=== PATIENT | female | born 1995 | race Caucasian/White ===

== ENCOUNTER 2022-06-06 18:55 | Emergency (ER) | payer OTHER, MEDICAID, SELFPAY ==
--- NOTE | ~2022-06-06 | CT_ITS ---
EXAMINATION: CT ABDOMEN AND PELVIS WITH CONTRAST CLINICAL INFORMATION: Rectal pain. Rule out abscess COMPARISON: None TECHNIQUE: Multidetector volumetric images were obtained from the superior aspect of the liver through the pubic symphysis following administration 85 mL of Omnipaque 350 intravenous contrast. Sagittal and coronal reformatted images were obtained on the technologist's workstation. Oral contrast: No This CT examination was performed using dose optimization techniques as appropriate, variously including the following: *Automated exposure control *Adjustment of mA and/or kV according to patient size (this includes techniques or standardized protocols for targeted exams where dose is matched to indication/reason for exam; i.e. extremities or head) *Use of iterative reconstruction technique DLP: 478 mGy-cm FINDINGS: LUNG BASES: Minimal left basilar atelectasis. The lung bases are otherwise clear. The visualized cardiac structures are unremarkable LIVER, GALLBLADDER, AND BILIARY TREE: The liver is normal in size, shape, and attenuation. No focal hepatic lesion or biliary ductal dilatation is present. The gallbladder is unremarkable with no evidence of radiopaque gallstones, gallbladder wall thickening, or obvious pericholecystic inflammatory changes. PANCREAS: Unremarkable. SPLEEN: Unremarkable. ADRENAL GLANDS: Unremarkable. KIDNEYS AND URETERS: The kidneys are normal in size, shape, and attenuation. No hydronephrosis, hydroureter, or calculi seen. No perinephric stranding. BLADDER: Unremarkable. GASTROINTESTINAL TRACT: The stomach is unremarkable. Normal caliber small bowel. No obstruction. Normal appendix. No colonic wall thickening or inflammatory change. No perirectal fluid collection. No free air or free fluid. ABDOMINAL WALL: No significant hernia is appreciated. LYMPH NODES: Normal. VASCULAR: Unremarkable. PELVIC VISCERA: Anteverted uterus. IUD in place. No adnexal mass. OSSEOUS STRUCTURES: No acute or suspicious osseous abnormality. CT/CT abdomen pelvis w IV con IMPRESSION: No acute findings in the abdomen or pelvis. No inflammatory changes. No perirectal fluid collection. Fleischner guidelines were followed.
--- NOTE | 2022-06-06 19:01 | ED_ITS ---
HPI - Abdominal Pain General Chief Complaint: Abdominal Pain <Anika Rocha NP - Last Filed: 06/06/22 19:06> Stated Complaint: rectal pain and bloody discharge <Anika Rocha NP - Last Filed: 06/06/22 19:06> Time Seen by Provider: 06/06/22 20:08 <Anika Rocha NP - Last Filed: 06/06/22 19:06> Source: patient <Kavon Yung MD - Last Filed: 06/07/22 00:41> Mode of arrival: ambulatory <Kavon Yung MD - Last Filed: 06/07/22 00:41> Limitations: no limitations <Kavon Yung MD - Last Filed: 06/07/22 00:41> History of Present Illness HPI narrative: 27-year-old female came in for evaluation of rectal pain. Rectal pain started 3 days ago with maturation, pain is constant feels severe when she is having bowel movement in between feels mild, patient also noted black stool 2 days ago which is normal today. No nausea, no vomiting no upper abdominal pain until she had abdominal exam patient felt right lower quadrant abdominal tenderness, no fever, no chills. Patient declined chance of feeling , no vaginal bleeding or discharge. No dysuria, no frequency urination, no hematuria. <Kavon Yung MD - Last Filed : 06/07/22 00:41> Related Data Home Medications: Previous Rx's Medication Instructions Recorded fluoxetine 20 mg capsule 20 mg PO DAILY #90 caps 06/04/22 nitrofurantoin 100 mg PO BID #14 caps 06/07/22 monohydrate/macrocrystals 100 mg capsule (Macrobid) <Anika Rocha NP - Last Filed: 06/06/22 19:06> Allergies/Adverse Reactions: Allergies Allergy/AdvReac Type Severity Reaction Status Date / Time Latex Allergy Unknown rash Uncoded 09/14/19 00:00 <Anika Rocha NP - Last Filed: 06/06/22 19:06> Review of Systems Review of Systems All other systems are reviewed and are negative Constitutional: Reports as per HPI and Reports no additional constitutional comp laints Eyes: Reports as per HPI and Reports no additional eye complaints Reports system reviewed and no additional complaints, except as documented Cardiovascular: Reports as per HPI and Reports no additional cardiovascular complaints Respiratory: Reports as per HPI and Reports no additional respiratory complaints Gastrointestinal: Reports as per HPI and Reports no additional gastrointestinal complaints Genitourinary: Reports no additional female genitourinary complaints Musculoskeletal: Reports no additional musculoskeletal complaints Skin/Breast: Reports system reviewed and no additional complaints, except as docu Psychiatric: Reports no additional psychiatric complaints Endocrine: Reports no additional endocrine complaints Hematologic/Lymphatic: Reports no additional hematologic/lymphatic complaints Allergic/Immunologic: Reports no additional allergic/immunologic complaints Reports system reviewed and no additional complaints, except as documented and Reports Abnormal speech present <Kavon Yung MD - Last Filed: 06/07/22 00:41> [facility] Social History Social History: Social History Housing: House Patient Tobacco Use Status: Current everyday Tobacco user Tobacco use type: Cigarette Cigarettes Per Day: 6 e-Cigarette/Vaping Use: Never Used Second Hand Smoke Exposure: No Advance Directives: No Advance Directives Information Provided: No service: No Current occupational status: employed Cognitive needs: No Hearing needs: No Vision needs: No <Anika Rocha NP - Last Filed: 06/06/22 19:06> Physical Exam ED Vital Signs: Vital Signs - 24 hr 06/06/22 19:02 06/06/22 21:40 06/07/22 00:00 Temperature 98.0 F 98.2 F 98.4 F Pulse Rate 118 H 79 86 Respiratory Rate 16 18 16 Blood Pressure 136/84 107/56 L 100/51 L Pulse Oximetry 97 98 98 Oxygen Delivery Method Room Air Room Air Room Air BMI result Body Mass Index 25.7 <Anika Rocha NP - Last Filed: 06/06/22 19:06> Vital Signs - 24 hr 06/06/22 19:02 06/06/22 21:40 06/07/22 00:00 Temperature 98.0 F 98.2 F 98.4 F Pulse Rate 118 H 79 86 Respiratory Rate 16 18 16 Blood Pressure 136/84 107/56 L 100/51 L Pulse Oximetry 97 98 98 Oxygen Delivery Method Room Air Room Air Room Air BMI result Body Mass Index 25.7 Vital signs have been reviewed as appeared to be correct. Blood pressure normal. Heart rate elevated. Respiration rate normal. Temperature normal. Oxygen saturation normal. <Kavon Yung MD - Last Filed: 06/07/22 00:41> Appearance: Alert. Oriented X3. No acute distress. Head: Normal external exam. Normocephalic. Atraumatic. No Rolle signs noted. No raccoon eyes noted Eyes: PERRLA. EOMI. Conjunctiva and sclera normal. Eyelids normal. ENT: TM's Normal. Pharynx normal. Uvula midline. Moist mucous membranes. No trismus noted. No drooling noted. No muffled voice noted. Neck: Normal inspection. Neck supple. FROM. No adenopathy. Thyroid Normal. No meningeal signs. No neck mass noted. CVS: Normal heart rate and rhythm. Heart sound normal. No murmurs noted. Pulses normal throughout. Respiratory: No respiratory distress. Painless inspiration. Breath sounds rober l. No wheezes/rales/rhonchi noted. Chest nontender. No accessory muscle usage noted or decreased air movement noted. Abdomen: Soft and nontender. Bowel sounds normal in all 4 quadrants. No distention noted. No organomegaly noted. No visible injury noted. Rectal exam: No external hemorrhoids, no internal hemorrhoid, no internal fluctuation or mass. Back: No CVA tenderness. Full range of motion noted. Skin: Skin warm and dry. Normal skin color. Normal skin turgor. No rashes/lesions/lacerations noted. Extremities: No lower extremity edema. Extremities exhibit normal range of motion. Extremities nontender. Neuro: Oriented X 3. Cranial nerve exam: II-XII are grossly intact No motor deficit. No sensory deficit. Reflexes normal. <Kavon Yung MD - Last Filed: 06/07/22 00:41> Course Course Course Narrative: This is a rapid medical exam. Deferred additional HPI, ROS, PE to primary provider. 27 yo female with history of anxiety/depression here with complaints of rectal pain/pressure since Wednesday. Went to [place] but was not seen due to long wait. Went to today and had rectal exam which patient states they felt a painful bump inside my rectum . Sent in here for further evaluation. Will obtain labs, UA, ur preg. VSS <Anika Rocha NP - Last Filed: 06/06/22 19:06> Reevaluation(s) Reevaluation #1: Rectal pain and black stool, patient has unremarkable rectal exam with no hemorrhoids or abscess is appreciated, normal wbc's with slight left shift, CT of the abdomen pelvis shows no suspicion for rectal abscess or proctitis . Patient now feels better will reassure and discharge. <Kavon Yung MD - Last Filed: 06/07/22 00:41> Time: 00:35 <Kavon Yung MD - Last Filed: 06/07/22 00:41> Medical Decision Making Differential Diagnosis Differential Diagnoses: The differential diagnosis associated with the presentation includes (Abdominal pain, constipation, proctitis, rectal abscess, complicated hemorrhoid.) <Kavon Yung MD - Last Filed: 06/07/22 00:41> Lab Data MDM Lab Attestation statement: I reviewed the patient's lab results. <Kavon Yung MD - Last Filed: 06/07/22 00:41> Result Diagrams: 06/06/22 20:46 06/06/22 20:46 <Anika Rocha NP - Last Filed: 06/06/22 19:06> Labs: Lab Results 06/06/22 06/06/22 06/06/22 Range/Units 20:46 20:46 20:51 WBC 10.8 (4.8-10.8) X10*3/uL RBC 3.87 L (4.20-5.50) X10*6/uL Hgb 11.5 L (12.0-16.0) g/dl Hct 35.6 L (37.0-47.0) % MCV 92.0 (80.0-98.0) fL MCH 29.7 (27.0-33.0) pg MCHC 32.3 (31.0-35.0) g/dl RDW 13.1 (11.0-16.0) % Plt Count 333 (160-400) X10*3/uL MPV 10.0 (9.4-12.3) fL Immature Gran % (Auto) 0.5 H (0.0-0.4) % Neut % (Auto) 59.0 (45-73) % Lymph % (Auto) 33.9 (20-40) % Sebastian % (Auto) 5.0 (2-11) % Eos % (Auto) 1.3 (0-4) % Baso % (Auto) 0.3 (0-2) % Lymph # (Auto) 3.7 (1.2-4.9) X10*3/uL Sebastian # (Auto) 0.5 (0.1-1.2) X10*3/uL Eos # (Auto) 0.1 (0.0-0.4) X10*3/uL Baso # (Auto) 0.0 (0.0-0.2) X10*3/uL Abs Immat Gran (auto) 0.05 H (0.00-0.03) X10*3/uL Absolute Neuts (auto) 6.4 (2.0-8.3) x10*3/uL Absolute Nucleated RBC 0.000 (0.0-0.012) X10*3/uL Nucleated RBC % (auto) 0.0 (0.0-0.2) /100WBC Sodium 140 (135-145) mmol/L Potassium 4.1 (3.3-5.1) mmol/L Chloride 106 (96-108) mmol/L Carbon Dioxide 26 (22-29) mmol/L Anion Gap 12 (12-20) BUN 15 (9-16) mg/dL Creatinine 0.63 (0.5-1.4) mg/dL Estim Creat Clear Calc 134.3 Estimated GFR > 60 Random Glucose 86 (60-115) mg/dL Calcium 9.3 (8.4-10.2) mg/dL Urine Color Yellow Urine Appearance Cloudy Urine pH 5.5 (5.0-9.0) Ur Specific [place] 1.025 (1.005-1.025) Urine Protein Negative (Neg-Trace) mg/dL Urine Glucose (UA) Negative (Negative) mg/dL Urine Ketones Negative (Negative) mg/dL Urine Blood Negative (Negative) Urine Nitrite Negative (Negative) Ur Leukocyte Esterase Moderate (2+) H (Negative) Urine RBC 6-10 H (0-2) /HPF Urine WBC 21-50 H (0-5) /HPF Ur Squamous Epith Cells 11-20 (0-2) /HPF Urine Bacteria 2+ (None Seen) Hyaline Casts 0-2 (0-2) /LPF Urine Test (NEGATIVE) Stool Occult Blood (NEGATIVE) 06/06/22 06/06/22 Range/Units 20:51 20:58 WBC (4.8-10.8) X10*3/uL RBC (4.20-5.50) X10*6/uL Hgb (12.0-16.0) g/dl Hct (37.0-47.0) % MCV (80.0-98.0) fL MCH (27.0-33.0) pg MCHC (31.0-35.0) g/dl RDW (11.0-16.0) % Plt Count (160-400) X10*3/uL MPV (9.4-12.3) fL Immature Gran % (Auto) (0.0-0.4) % Neut % (Auto) (45-73) % Lymph % (Auto) (20-40) % Sebastian % (Auto) (2-11) % Eos % (Auto) (0-4) % Baso % (Auto) (0-2) % Lymph # (Auto) (1.2-4.9) X10*3/uL Sebastian # (Auto) (0.1-1.2) X10*3/uL Eos # (Auto) (0.0-0.4) X10*3/uL Baso # (Auto) (0.0-0.2) X10*3/uL Abs Immat Gran (auto) (0.00-0.03) X10*3/uL Absolute Neuts (auto) (2.0-8.3) x10*3/uL Absolute Nucleated RBC (0.0-0.012) X10*3/uL Nucleated RBC % (auto) (0.0-0.2) /100WBC Sodium (135-145) mmol/L Potassium (3.3-5.1) mmol/L Chloride (96-108) mmol/L Carbon Dioxide (22-29) mmol/L Anion Gap (12-20) BUN (9-16) mg/dL Creatinine (0.5-1.4) mg/dL Estim Creat Clear Calc Estimated GFR Random Glucose (60-115) mg/dL Calcium (8.4-10.2) mg/dL Urine Color Urine Appearance Urine pH (5.0-9.0) Ur Specific [place] (1.005-1.025) Urine Protein (Neg-Trace) mg/dL Urine Glucose (UA) (Negative) mg/dL Urine Ketones (Negative) mg/dL Urine Blood (Negative) Urine Nitrite (Negative) Ur Leukocyte Esterase (Negative) Urine RBC (0-2) /HPF Urine WBC (0-5) /HPF Ur Squamous Epith Cells (0-2) /HPF Urine Bacteria (None Seen) Hyaline Casts (0-2) /LPF Urine Test NEGATIVE (NEGATIVE) Stool Occult Blood NEGATIVE (NEGATIVE) <Anika Rocha, [employer]IST - Last Filed: 06/06/22 19:06> Lab Results 06/06/22 06/06/22 06/06/22 Range/Units 20:46 20:46 20:51 WBC 10.8 (4.8-10.8) X10*3/uL RBC 3.87 L (4.20-5.50) X10*6/uL Hgb 11.5 L (12.0-16.0) g/dl Hct 35.6 L (37.0-47.0) % MCV 92.0 (80.0-98.0) fL MCH 29.7 (27.0-33.0) pg MCHC 32.3 (31.0-35.0) g/dl RDW 13.1 (11.0-16.0) % Plt Count 333 (160-400) X10*3/uL MPV 10.0 (9.4-12.3) fL Immature Gran % (Auto) 0.5 H (0.0-0.4) % Neut % (Auto) 59.0 (45-73) % Lymph % (Auto) 33.9 (20-40) % Sebastian % (Auto) 5.0 (2-11) % Eos % (Auto) 1.3 (0-4) % Baso % (Auto) 0.3 (0-2) % Lymph # (Auto) 3.7 (1.2-4.9) X10*3/uL Sebastian # (Auto) 0.5 (0.1-1.2) X10*3/uL Eos # (Auto) 0.1 (0.0-0.4) X10*3/uL Baso # (Auto) 0.0 (0.0-0.2) X10*3/uL Abs Immat Gran (auto) 0.05 H (0.00-0.03) X10*3/uL Absolute Neuts (auto) 6.4 (2.0-8.3) x10*3/uL Absolute Nucleated RBC 0.000 (0.0-0.012) X10*3/uL Nucleated RBC % (auto) 0.0 (0.0-0.2) /100WBC Sodium 140 (135-145) mmol/L Potassium 4.1 (3.3-5.1) mmol/L Chloride 106 (96-108) mmol/L Carbon Dioxide 26 (22-29) mmol/L Anion Gap 12 (12-20) BUN 15 (9-16) mg/dL Creatinine 0.63 (0.5-1.4) mg/dL Estim Creat Clear Calc 134.3 Estimated GFR > 60 Random Glucose 86 (60-115) mg/dL Calcium 9.3 (8.4-10.2) mg/dL Urine Color Yellow Urine Appearance Cloudy Urine pH 5.5 (5.0-9.0) Ur Specific [place] 1.025 (1.005-1.025) Urine Protein Negative (Neg-Trace) mg/dL Urine Glucose (UA) Negative (Negative) mg/dL Urine Ketones Negative (Negative) mg/dL Urine Blood Negative (Negative) Urine Nitrite Negative (Negative) Ur Leukocyte Esterase Moderate (2+) H (Negative) Urine RBC 6-10 H (0-2) /HPF Urine WBC 21-50 H (0-5) /HPF Ur Squamous Epith Cells 11-20 (0-2) /HPF Urine Bacteria 2+ (None Seen) Hyaline Casts 0-2 (0-2) /LPF Urine Test (NEGATIVE) Stool Occult Blood (NEGATIVE) 06/06/22 06/06/22 Range/Units 20:51 20:58 WBC (4.8-10.8) X10*3/uL RBC (4.20-5.50) X10*6/uL Hgb (12.0-16.0) g/dl Hct (37.0-47.0) % MCV (80.0-98.0) fL MCH (27.0-33.0) pg MCHC (31.0-35.0) g/dl RDW (11.0-16.0) % Plt Count (160-400) X10*3/uL MPV (9.4-12.3) fL Immature Gran % (Auto) (0.0-0.4) % Neut % (Auto) (45-73) % Lymph % (Auto) (20-40) % Sebastian % (Auto) (2-11) % Eos % (Auto) (0-4) % Baso % (Auto) (0-2) % Lymph # (Auto) (1.2-4.9) X10*3/uL Sebastian # (Auto) (0.1-1.2) X10*3/uL Eos # (Auto) (0.0-0.4) X10*3/uL Baso # (Auto) (0.0-0.2) X10*3/uL Abs Immat Gran (auto) (0.00-0.03) X10*3/uL Absolute Neuts (auto) (2.0-8.3) x10*3/uL Absolute Nucleated RBC (0.0-0.012) X10*3/uL Nucleated RBC % (auto) (0.0-0.2) /100WBC Sodium (135-145) mmol/L Potassium (3.3-5.1) mmol/L Chloride (96-108) mmol/L Carbon Dioxide (22-29) mmol/L Anion Gap (12-20) BUN (9-16) mg/dL Creatinine (0.5-1.4) mg/dL Estim Creat Clear Calc Estimated GFR Random Glucose (60-115) mg/dL Calcium (8.4-10.2) mg/dL Urine Color Urine Appearance Urine pH (5.0-9.0) Ur Specific [place] (1.005-1.025) Urine Protein (Neg-Trace) mg/dL Urine Glucose (UA) (Negative) mg/dL Urine Ketones (Negative) mg/dL Urine Blood (Negative) Urine Nitrite (Negative) Ur Leukocyte Esterase (Negative) Urine RBC (0-2) /HPF Urine WBC (0-5) /HPF Ur Squamous Epith Cells (0-2) /HPF Urine Bacteria (None Seen) Hyaline Casts (0-2) /LPF Urine Test NEGATIVE (NEGATIVE) Stool Occult Blood NEGATIVE (NEGATIVE) <Kavon Yung MD - Last Filed: 06/07/22 00:41> Independent Interpretation I performed an independent interpretation of an: CT Scan (abd and plevis: No acute findings in the abdomen or pelvis. No inflammatory changes. No perirectal fluid collection.) <Kavon Yung MD - Last Filed: 06/07/22 00:41> Medications Administered Discontinued Medications Generic Name Dose Route Start Last Admin Trade Name Freq PRN Reason Stop Dose Admin Sodium Chloride 1,000 mls @ 999 mls/hr 06/06/22 21:07 06/06/22 23:14 Ns IV 06/06/22 22:07 Infused .Q1H1M ONE Infusion Iohexol 100 ml 06/06/22 22:44 06/06/22 22:45 Iohexol 350 Mg/Ml 100 Ml Infus..Btl IV 06/06/22 22:45 85 ml ONCE ONE Administration <Anika Rocha NP - Last Filed: 06/06/22 19:06> Medications Administered Discontinued Medications Generic Name Dose Route Start Last Admin Trade Name Freq PRN Reason Stop Dose Admin Sodium Chloride 1,000 mls @ 999 mls/hr 06/06/22 21:07 06/06/22 23:14 Ns IV 06/06/22 22:07 Infused .Q1H1M ONE Infusion Iohexol 100 ml 06/06/22 22:44 06/06/22 22:45 Iohexol 350 Mg/Ml 100 Ml Infus..Btl IV 06/06/22 22:45 85 ml ONCE ONE Administration <Kavon Yung MD - Last Filed: 06/07/22 00:41> Discharge Plan Discharge Clinical Impression: Pain, rectal <Anika Rocha NP - Last Filed: 06/06/22 19:06> Patient Disposition: Home, Self-Care <Anika Rocha NP - Last Filed: 06/06/22 19:06> Instructions: Sitz Bath (DC), Rectal Pain (ED) <Anika Rocha NP - Last Filed: 06/06/22 19:06> Prescriptions: New nitrofurantoin monohyd/m-cryst [Macrobid] 100 mg capsule 100 mg PO BID Qty: 14 0RF Rx Instructions: must administer with a meal/food No Action fluoxetine 20 mg capsule 20 mg PO DAILY Qty: 90 8RF <Anika Rocha NP - Last Filed: 06/06/22 19:06> Referrals: Lauryn Middleton),MD Jonathon [Primary Care Provider] - <Anika Rocha NP - Last Filed: 06/06/22 19:06>
[2022-06-06 19:02] VITALS: BP 136/84; PULSE 118; RESP 16; TEMP 36.7; O2SAT 97; BMI 25.7
--- NOTE | 2022-06-06 20:57 | PC.NURSE ---
pt c/o rectal pain, no apparent distress watching tv while resting quietly present when Dr Yung performed rectal exam and collected stool sample for OB card sample
[2022-06-06 20:58] LABS: MANUAL DIFF FLAG NO
[2022-06-06 20:59] LABS: Appearance Urine Cloudy; Color Urine Yellow; Glucose Urine UA Negative (Negative); Leukocyte Esterase Urine Moderate (2+) (Negative); Nitrite Urine Negative (Negative); PH 5.5 (5.0-9.0); Specific Gravity - Urine 1.025 (1.005-1.025); UMIC TRIGGER UACC YES; Urine Blood Negative (Negative); Urine Ketones Negative (Negative); Urine Protein Negative (Neg-Trace)
[2022-06-06 20:59] LABS: Basophils Percent Auto 0.3 % (0-2); Eosinophils Absolute Auto 0.1 X10*3/uL (0.0-0.4); Eosinophils Percent Auto 1.3 % (0-4); Hematocrit 35.6 % (37.0-47.0); Hemoglobin 11.5 g/dl (12.0-16.0); Imm Gran Abs Auto 0.05 X10*3/uL (0.00-0.03); Imm Gran Pct Auto 0.5 % (0.0-0.4); Lymphocytes Absolute Auto 3.7 X10*3/uL (1.2-4.9); Lymphocytes Percent Auto 33.9 % (20-40); Mean Corpuscular HGB Conc 32.3 g/dl (31.0-35.0); Mean Corpuscular Hemoglobin 29.7 pg (27.0-33.0); Monocytes Absolute Auto 0.5 X10*3/uL (0.1-1.2); Neutrophils Absolute Auto 6.4 x10*3/uL (2.0-8.3); Platelet Count 333 X10*3/uL (160-400); Red Blood Count 3.87 X10*6/uL (4.20-5.50); Red Cell Distribution Width 13.1 % (11.0-16.0); White Blood Count 10.8 X10*3/uL (4.8-10.8)
[2022-06-06 21:01] LABS: UPreg QC Valid YES; Urine Pregnancy NEGATIVE (NEGATIVE)
[2022-06-06 21:04] LABS: OBS Int Ctl Valid YES; OBS1 NEGATIVE (NEGATIVE)
[2022-06-06 21:15] LABS: Bacteria Urine 2+ (None Seen); Hyaline Casts Urine 0-2 /LPF (0-2); UACC Culture Trigger YES; WBC Urine 21-50 /HPF (0-5)
[2022-06-06 21:34] LABS: Anion Gap 12 (12-20); Blood Urea Nitrogen 15 mg/dL (9-16); Calcium 9.3 mg/dL (8.4-10.2); Carbon Dioxide 26 mmol/L (22-29); Chloride 106 mmol/L (96-108); Creatinine Clr Calc Pharmacy 134.3; Estimated Glomerular Filt Rate > 60; Glucose Random 86 mg/dL (60-115); Potassium 4.1 mmol/L (3.3-5.1); Sodium 140 mmol/L (135-145)
[2022-06-06 21:40] VITALS: BP 107/56; PULSE 79; RESP 18; TEMP 36.8; O2SAT 98
[2022-06-06] MEDS: 0.9 % Sodium Chloride 1,000 ML 999 ML IV (21:59)
[2022-06-06] MEDS: iohexoL 350 MG/ML 100 ML INFUS..BTL IV (22:45)
[2022-06-07] VITALS: BP 100/51; PULSE 86; RESP 16; TEMP 36.9; O2SAT 98
--- NOTE | 2022-06-07 | MHC.EDTECH ---
this pct assumed care of pt [id number] ,vitals sign taken pt waiting for discharge paper work .
== END 2022-06-07 00:33 | disposition home or self-care (01) ==
PROVIDERS: Nurse Practitioner Family; Emergency Provider Emergency Medicine; PCP Internal Medicine
DX: K62.89 Other specified diseases of anus and rectum (principal); F17.210 Nicotine dependence, cigarettes, uncomplicated; Z79.899 Other long term (current) drug therapy
CPT/HCPCS: 36415; 74177; 80048; 81001; 81003; 81025; 82272; 85025; 87086; 96360; 99284; Q9967

== ENCOUNTER → 2022-06-10 11:01 | Outpatient (BNVA) | payer OTHER, MEDICAID, SELFPAY | PROVIDERS: PCP Internal Medicine; Referring Provider Internal Medicine; Visit Provider Physician Assistant | DX: Z13.89 Encounter for screening for other disorder (principal) ==

== ENCOUNTER 2025-01-17 13:25 | Outpatient (AMB) | payer MEDICAID, SELFPAY ==
[2025-01-17 13:27] VITALS: BP 94/52; PULSE 86; RESP 18; TEMP 36.3; O2SAT 97; BMI 22.9
--- NOTE | 2025-01-17 13:27 | A.OFFPC_ITS ---
Vital Signs 01/17/25 13:27 Height 5 ft 5 in Weight 137 lb 8 oz BMI 22.9 BP 94/52 L Blood Pressure Location Lt brachial Position Sitting Respiration 18 Pulse 86 Pulse Source Pulse Oximeter Temp 97.3 F Temp Source Temporal Artery Scan Pulse Oximetry (%) 97 Oxygen Delivery Method Room Air Intake Visit Reasons: follow up Surgeon/President Required: No Accompanied by: Self / Same As Patient Allergies No Known Allergies Allergy (Verified 01/17/25 13:28) Tobacco use date assessed: 01/17/25 Dental Screening Dental Screen Date: 01/17/25 Did you have a dental visit in the last 12 months?: Yes Did you have a dental problem in the last 6 months where you did not have access to dental care?: No Was dental information given to patient?: Patient has dentist HPI HPI Comments History of Present Illness Details The patient is a 29-year-old female presenting for physical exam. She also reports dizziness and lightheadedness. She reports experiencing these symptoms when standing up from a sitting position, which have been ongoing since the of her last child. Her blood pressure readings have been consistently low, with a recent measurement of 94/52 mmHg. The patient also presents with a flaky skin lesion on her nose, which she has had since November. The lesion is not a pimple, but it is flaky and sometimes cracks open, releasing a clear liquid. She has attempted to treat it with Aquaphor and a prescribed betamethasone cream, which temporarily alleviates the symptoms. The patient has a history of low iron levels and reports non-solid bowel movements for years. She also smokes and uses marijuana, and is currently taking Prozac. Additionally, she has symptoms suggestive of sleep apnea, as reported by her partner. - Pap smear is due - Discussed flu vaccination, patient dec lined - Advised to check tetanus vaccination s tatus [facility] Family History Paternal Grandmother Cancer Social History (Updated 01/17/25 @ 14:05 by Bianka Keenan MD) Housing: House Patient Tobacco Use Status: Current everyday Tobacco user Tobacco use type: Cigarette Cigarettes Per Day: 6 e-Cigarette/Vaping Use: Currently Using Second Hand Smoke Exposure: No service: No Current occupational status: employed Cognitive needs: No Hearing needs: No Vision needs: No Questionnaire PHQ-9 Over the last 2 weeks, how often have you been bothered by any of the following problems? 1. Little interest or pleasure in doing things: not at all 2. Feeling down, depressed, or hopeless: not at all 3. Trouble falling or staying asleep, or sleeping too much: not at all 4. Feeling tired or having little energy: several days 5. Poor appetite or overeating: several days 6. Feeling bad about yourself - or that you are a failure or have let yourself or your family down: several days 7. Trouble concentrating on things, such as reading the newspaper or watching television: not at all 8. Moving or speaking so slowly that other people could have noticed. Or the opposite - being so fidgety or restless that you have been moving around a lot more than usual: not at all 9. Thoughts that you would be better off or of hurting yourself in some way: not at all Total score: 3 Depression Screening Interpretation: Negative Depression Screening Done: Yes Source: Developed by Drs. Fabiano Evans, Paige Bernal, Avtar Read and colleagues, with an educational girish from [employer]. Thrive Questionnaire Date Thrive assessed: 01/17/25 I am a: Patient What is your living situation today?: I have a steady place to live Within the past 12 months, did the food you bought not last and you didn't have the money to get more?: Sometimes True Within the past 12 months, did you worry whether your food would run out before you got money to buy more?: Sometimes True Do you have trouble paying for medicines?: No Do you have trouble getting transportation to medical appointments?: No Do you have trouble paying your heating and electricity bill?: No Do you have trouble taking care of your child, family member or friend?: No Do you have trouble with day-to-day activities such as bathing, preparing meals, shopping, managing finances, etc.?: No Are you currently unemployed and looking for a job?: Yes Are you interested in more education?: Yes Please select the resources that you would like help with: None Currently or been in a relationship where the following occur: No concerns reported THRIVE Score: 2 AUDIT C Alcohol Use Questionnaire (AUDIT-C) 1. How often do you have a drink containing alcohol?: Never 2. How many drinks containing alcohol do you have on a typical day when you are drinking?: 1 or 2 3. How often do you have six or more drinks on one occasion?: Never Total Score: 0 MARU-7 AMB Questionnaire MARU-7 Date MARU - 7 assessed: 06/04/22 Feeling nervous, anxious, or on edge: 1 = Several days Not being able to stop or control worryin = Several days Worrying too much about different things: 1 = Several days Trouble relaxin = Several days Being so restless that it is hard to sit still: 3 = Nearly every day Becoming easily annoyed or irritable: 1 = Several days Feeling afraid as if something awful might happen: 1 = Several days Total MARU-7 score (0-4 normal; 5-9 mild; 10-14 moderate; 15-21 severe): 9 Source: Developed by Drs. Fabiano Evans, Paige Bernal, Avtar Read and colleagues, with an educational girish from [employer]. Review of Systems Const Details: Positives besides what was mentioned in HPI are in BOLD Constitutional: No Weight Change, No Fever, No Chills, No Night Sweats, No Fatigue, No Malaise ENT/Mouth: No Hearing Changes, No Ear Pain, No Nasal Congestion, No Sinus Pain, No Hoarseness, No sore throat, No Rhinorrhea, No Swallowing Difficulty Eyes: No Eye Pain, No Swelling, No Redness, No Foreign Body, No Discharge, No Vision Changes Cardiovascular: No Chest Pain, No SOB, No PND, No Dyspnea on Exertion, No Orthopnea, No Claudication, No Edema, No Palpitations Respiratory: No Cough, No Sputum, No Wheezing, No Smoke Exposure, No Dyspnea Gastrointestinal: No Nausea, No Vomiting, No Diarrhea, No Constipation, No Pain, No Heartburn, No Anorexia, No Dysphagia, No Hematochezia, No Melena, No Flatulence, No Jaundice Genitourinary: No Dysmenorrhea, No DUB, No Dyspareunia, No Dysuria, No Urinary Frequency, No Hematuria, No Urinary Incontinence, No Urgency, No Flank Pain, No Urinary Flow Changes, No Hesitancy Musculoskeletal: No Arthralgias, No Myalgias, No Joint Swelling, No Joint Stiffness, No Back Pain, No Neck Pain, No Injury History Skin: No Skin Lesions, No Pruritis, No Hair Changes, No Breast/Skin Changes, No Nipple Discharge Neuro: No Weakness, No Numbness, No Paresthesias, No Loss of Consciousness, No Syncope, No Dizziness, No Headache, No Coordination Changes, No Recent Falls Psych: No Anxiety/Panic, No Depression, No Insomnia, No Personality Changes, No Delusions, No Rumination, No SI/HI/AH/VH, No Social Issues, No Memory Changes, No Violence/Abuse Hx., No Eating Concerns Heme/Lymph: No Bruising, No Bleeding, No Transfusions History, No Ly mphadenopathy Endocrine: No Polyuria, No Polydipsia, No Temperature Intolerance Physical exam (Primary Care) Vital Signs: Last Vital Signs Temp 97.3 F 01/17/25 13:27 Pulse 86 01/17/25 13:27 Resp 18 01/17/25 13:27 BP 94/52 L 01/17/25 13:27 Pulse Ox 97 01/17/25 13:27 Oxygen Delivery Method Room Air 01/17/25 13:27 BMI result Body Mass Index 22.9 Tobacco/Smoking Status: Tobacco use Status Tobacco use date assessed 01/17/25 01/17/25 13:34 Patient Tobacco Use Status Current everyday Tobacco 01/17/25 13:34 Tobacco use type Cigarette 01/17/25 13:34 e-Cigarette/Vaping Use Never Used 01/17/25 13:34 PHQ-9: PHQ-9 Score PHQ-9: Total score 3 01/17/25 13:34 Depression Screening Interpretation: Negative Thrive Assessment: Date of Thrive Assessment Date Thrive assessed 01/17/25 01/17/25 13:34 Currently or been in a relationship where the following occur: No concerns reported Const Other: Pertinent findings are in BOLD GENERAL APPEARANCE NAD, activity normal for age, well developed/ well nourished, no cyanosis, pallor, or diaphoresis. EYES lids/conjunctiva normal. EARS/NOSE/THROAT Mucous membranes moist, nares normal, lips/teeth normal uvula midline without oral pharyngeal erythema, exudate or swelling TMs normal bilaterally. No lymphangitis/lymphedema. HEAD/NECK normocephalic atraumatic, no facial trauma, neck is supple. RESPIRATORY respiratory effort normal, speaks in full sentences, no tripod position, no accessory muscle use. Lungs clear to auscultation without rhonchi, wheezes, rales CARDIAC Regular rate and rhythm, no edema. ABDOMINAL Soft, ND/NT. No evidence of fluid wave. No pulsatile masses on exam, rebound tenderness, Valladares sign or pain over Mcburney's point. MUSCLES/EXTREMITIES No abnormal range of motion, no swelling. SKIN Warm, pink and dry. No rashes, dermatoses, petechiae or lesions. NEUROLOGICAL Speech is clear and appropriate. Normal level of consciousness. Gait and coordination are normal. 5/5 strength in all extremities. PSYCH Normal mood and affect. Judgement/competence is appropriate Coding Level of Care Code Est Pt Level 4 (18988) Est Pt Prev Care 18-39y(44516) Diagnoses Face lesion L98.9 Health maintenance examination Z00.00 Orthostatic hypotension I95.1 Snoring R06.83 Assessment & Plan Assessment & Plan (1) Face lesion: Code(s): L98.9 - Disorder of the skin and subcutaneous tissue, unspecified Category: Medical Plan: - Referred to dermatology for further evaluation. - Advised to discontinue steroid creams and continue using Aquaphor. (2) Health maintenance examination: Code(s): Z00.00 - Encounter for general adult medical examination without abnormal findings Category: Medical Plan: Dexa. Due at 67. CBC, CMP, Lipid panel, A1C, TSH w T4. Ordered today. Advised on getting Shingles vaccine. Not due. Patient reports completing COVID vaccine in the past. She will get the flu vaccine from retail pharmacy. Colonoscopy: 45-75. Due at 45. AAA: Due at 65. Ct lung: Due at 50. Mammogram: Due at 40. HPV: Due now. Patient will get it from [facility]. HIV: Next visit. HBV: Next visit. HCV: Next visit. (3) Orthostatic hypotension: Code(s): I95.1 - Orthostatic hypotension Category: Medical Plan: BP in clinic is low. Patient reports good oral hydration. Drinks 2-3 L per day. Trial of meclizine. If symptoms persist we can try Midodrine. (4) Snoring: Code(s): R06.83 - Snoring Category: Medical Plan: With episodes of chocking at night. Sleep medicine referral. Plan I discussed with the patient the management of her dizziness and lightheadedness, including the prescription of meclizine to be taken as needed. We also talked about the importance of maintaining hydration and the possibility of needing medication if her blood pressure remains low. Regarding the skin lesion, I advised discontinuing steroid creams and continuing with Aquaphor, and referred her to dermatology for further evaluation. Preventative care measures were discussed, including the need for a Pap smear, flu vaccination, and checking her tetanus vaccination status. Orders: Orders TSH reflex Free T4 Today Z00.00 - Encounter for general adult medical examination without abnormal findings Vitamin D 1,25 dihydroxy Today Z00.00 - Encounter for general adult medical examination without abnormal findings Complete Blood Count Auto Diff Today Z00.00 - Encounter for general adult medical examination without abnormal findings Comprehensive Met. Panel Today Z00.00 - Encounter for general adult medical ex amination without abnormal findings Hemoglobin A1c Today Z00.00 - Encounter for general adult medical examination without abnormal findings Lipid Panel Today Z00.00 - Encounter for general adult medical examination without abnormal findings DICK Reflex Titer and Pattern Today Z00.00 - Encounter for general adult medical examination without abnormal findings Referrals Sleep Medicine Referral Z00.00 - Encounter for general adult medical examination without abnormal findings Medications: New meclizine 12.5 mg PO TID PRN 90 tabs 1RF dizziness
--- OUTSIDE RECORDS SUMMARY | 2025-01-17 14:39 | XMS_ITS | Encounter Summary ---
Author Organization [facility] Address [address] [place] [id number] Phone Care Team Providers Care Tester [employer] Name Role Phone Baljit Thornton MD Primary Care Provider [phone] Encounter Details Date Type Department Care Team (Late st Contact Info) Description 05/08/2009 Documentation [facility] Family Medicine [address] [place] [address] Family Medicine, Physician [address], [place] [address] Social History Tobacco Use Types Packs/Day Years Used Date Smoking Tobacco: Never Assessed Comments Unknown Sex and Gender Information Value Date Recorded Sex Assigned at Not on file Legal Sex Female 6:11 PM EDT Gender Identity Not on file Sexual Orientation Not on file documented as of this encounter Plan of Treatment Not on file documented as of this encounter Visit Diagnoses Not on filedocumented in this encounter Care Teams Tester [employer] Relationship Specialty Start Date End Date Baljit Thornton MD [address] [place] [address] PCP - General 08/25/17 04/02/24 documented as of this encounter
--- OUTSIDE RECORDS SUMMARY | 2025-01-17 14:39 | XMS_ITS | Clinical Summary ---
Author Organization [facility] Address [address] [place] [address] Phone Care Team Providers Care Hang Gliding Instructor Name Role Phone Unavailable Primary Care Provider Unavailabl e Immunizations Immunization Administration Dates Next Due DTaP 02/01/2002, 9,1997, 998,1997 HPV, Quadrivalent 10/02/2008,05/30/2008,03/26/20 08 Hep B, ped/adol 1997,1997,1997 Hib (PRP-T) 05/10/1998, 8,1997, 997 IPV 02/01/2002, 8,1997, 997 Influenza, injectable, quadrivalent 01/14/2016,0 01/08/2015 MMR 02/02/2001,02/01/1998 Meningococcal Conj (Menactra) MCV4P 08/31/2013,1 05/27/2007 Tdap 03/26/2008 Varicella 03/03/2007,02/01/1998 Family History Relation Name Status Comments Child Alive Father Alive Healthy age: 49 Maternal Grandfather Alive ? adhd, Alzheimer diagnosed with HEART DISEASE NOS Maternal Grandmother CHF jennifer gnosed with HEART DISEASE NOS Mother Alive Healthy age: 49 Other Alive Siblings: Healt hy 2 brothers Paternal Grandfather Alive diagnos ed with HEART DISEASE NOS Paternal Grandmother Alive diagnos ed with MALIGNANT NEOPLASM NOS Social History Tobacco Use Types Packs/Day Years Used Date Smoking Tobacco: Never Assessed Comments Unknown Sex and Gender Information Value Date Recorded Sex Assigned at Not on file Legal Sex Female 6:11 PM EDT Gender Identity Not on file Sexual Orientation Not on file Last Filed Vital Signs Vital Sign Reading Time Taken Comments Blood Pressure 108/60 01/14/2016 12:00 AM EDT Pulse - - Temperature 37 C (98.6 F) 06/26/2015 12:00 AM EST Respiratory Rate - - Oxygen Saturation - - Inhaled Oxygen Concentration - - Weight 52.2 kg (115 lb) 01/14/2016 12:00 AM EDT Height 164.5 cm (5' 4.75 ) 01/14/2016 12:00 AM E DT Body Mass Index 19.29 01/14/2016 12:00 AM EDT Plan of Treatment Health Maintenance Due Date Last Done Comments DTaP,Tdap,and Td Vaccines (7 - Td or Tdap) 03/26/2018 03/26/2008, 02/01/2002, 05/10/1998, Additional history exists Influenza Vaccines (#1) 2024 01/14/2016, 01/08 COVID-19 Vaccine ( season) 2024 Hepatitis B Vaccines Completed 1997, 1997, 1997 HIB Vaccines Completed 05/10/1998, 07/18, 1997, Additional history exists MMR Vaccines Completed 02/02/2001, 02/01/1998 IPV Vaccines Completed 02/01/2002, 01/17, 1997, Additional history exists Varicella Vaccines Completed 03/03/2007, 02/01/1998 HPV Vaccines Completed 10/02/2008, 05/20, 03/26/2008 Meningococcal Vaccine Completed 08/31/2013, 008 Hepatitis A Vaccines Aged Out No long er eligible based on patient's age to complete this topic Men B Vaccine Aged Out No longer elig ible based on patient's age to complete this topic Pneumococcal Vaccine Aged Out No long er eligible based on patient's age to complete this topic Procedures * Due to [place] state law, this organization might not be sharing sensitive test results. Procedure Name Priority Date/Time Associated Diagnosis Comments CHLAMYDIA AND GONORRHEA, AMPLIFIED Routine 01/15/2016 12:00 AM EDT from Last 3 Months or Most Recently Relevant to Health Maintenance Results * Due to [place] state law, this organization might not be sharing sensitive test results. * Chlamydia and Gonorrhoea, Amplified (01/15/2016 12:00 AM EDT) URINE GC AMP PROBE NEGATIVE C ONVERTED LABS Comment: No Neisseria Gonorrhoeae RNA detected in this patient's sample (REFERENCE RANGE/NORMAL VALUE: NOT DETECTED) NOTE: This test uses emery grinder-mediated amplification method to detect rRNA from C.Trachomatis and N.Gonorrhoeae. A negative result does not preclude infection. In the case of a negative urine result, testing of an endocervical(female) or urethral(male) specimen is recommended if there is high clinical suspicion of infection. The performance characteristics of this test have not been evaluated in children. The Aptima Combo2 assay is not intended for the evaluation of suspected sexual abuse or for other medico-legal indications. The ordering provider should assess if the patient had consensual sex without risk of sexual abuse. Consult the [facility] if needed. Contact phone number . Therapeutic failure or success cannot be determined with the Aptima Combo2 assay since nucleic acid may persist following appropriate antimicrobial therapy. The Centers for Disease Control and Prevention (CDC) recommends confirmatory retesting using culture or a different nucleic acid amplification test when positive results occur, if indicated. URINE CHLAMYDIA AMP PROBE NEGATIVE CONVERTED LABS Comment: No Chlamydia Trachomatis RNA detected in this patient's sample (REFERENCE RANGE/NORMAL VALUE: NOT DETECTED) 01/15/2016 Narrative CONVERTED LABS - 01/15/2016 12:00 AM EDT Screening Negative Kirsten Zaragoza 01/14/2016 10:28:50 AM > Baljit Thornton 01/15/2016 04:19:42 PM > us Baljit Thornton MD LAB MICROBIOLOGY - GENERAL O RDERABLES Final Result CONVERTED LABS from Last 3 Months or Most Recently Relevant to Health Maintenance
--- OUTSIDE RECORDS SUMMARY | 2025-01-17 14:39 | XMS_ITS | Encounter Summary ---
Author Organization [facility] Address [address] [place] [address] Phone Care Team Providers Care Field Map Technician Name Role Phone Baljit Thornton MD Primary Care Provider [phone] Encounter Details Date Type Department Care Team (Late st Contact Info) Description 09/05/2017 Conversion Encounter [facility] [address] [place] [address] Baljit Thornton MD [address] [place] [phone] Social History Tobacco Use Types Packs/Day Years [...] on filedocumented in this encounter Care Teams Field Map Technician Relationship Specialty Start Date End Date Baljit Thornton MD [address] [place] [id number] PCP - General 08/25/17 04/02/24 documented as of this encounter
--- OUTSIDE RECORDS SUMMARY | 2025-01-17 14:39 | XMS_ITS | Encounter Summary ---
Author Organization [facility] Address [address] [place] [address] Phone Care Team Providers Care Superintendent [employer] Name Role Phone Baljit Thornton MD Primary Care Provider [phone] Encounter Details Date Type Department Care Team (Late st Contact Info) Description 06/13/[address] [facility] Family Medicine [address] [place] [address] Family Medicine, Physician [address], [place] [id number] Social History Tobacco Use Types Packs/Day Years [...] on filedocumented in this encounter Care Teams Superintendent [employer] Relationship Specialty Start Date End Date Baljit Thornton MD [address] [place] [address] PCP - General 08/25/17 04/02/24 documented as of this encounter
== END 2025-01-17 14:01 | disposition home or self-care (01) ==
LOC: HO.HMCH 13:25
PROVIDERS: PCP Internal Medicine; Visit Provider Internal Medicine
DX: Z00.00 Encounter for general adult medical examination without abnormal findings (principal); R06.83 Snoring; L98.9 Disorder of the skin and subcutaneous tissue, unspecified; I95.1 Orthostatic hypotension

== ENCOUNTER 2025-01-17 13:25 | Outpatient (REF) | payer OTHER, SELFPAY ==
[2025-01-17 15:13] LABS: MANUAL DIFF FLAG NO
[2025-01-17 15:32] LABS: Hematocrit 35.6 % (37.0-47.0); Hemoglobin 12.0 g/dl (12.0-16.0); Imm Gran Abs Auto 0.02 X10*3/uL (0.00-0.03); Imm Gran Pct Auto 0.3 % (0.0-0.4); Lymphocytes Absolute Auto 2.5 X10*3/uL (1.2-4.9); Mean Corpuscular HGB Conc 33.7 g/dl (31.0-35.0); Mean Corpuscular Hemoglobin 29.9 pg (27.0-33.0); Mean Corpuscular Volume 88.6 fL (80.0-98.0); NRBC Abs Auto 0.000 X10*3/uL (0.0-0.012); NRBC Pct Auto 0.0 /100WBC (0.0-0.2); Platelet Count 299 X10*3/uL (160-400); Red Blood Count 4.02 X10*6/uL (4.20-5.50); White Blood Count 8.0 X10*3/uL (4.8-10.8)
[2025-01-17 15:40] LABS: Total Hemoglobin (HGBA1C) 3122.0758 umol/L
[2025-01-17 15:56] LABS: Alanine Aminotransferase 22 U/L (0-31); Albumin Level 4.7 g/dL (3.5-5.0); Alkaline Phosphatase 39 U/L (39-117); Anion Gap 9 (12-20); Aspartate Amino Transferase 31 U/L (5-31); Blood Urea Nitrogen 11 mg/dL (9-16); Calcium 9.6 mg/dL (8.4-10.2); Carbon Dioxide 27 mmol/L (22-29); Chloride 109 mmol/L (96-108); Cholesterol 137 mg/dL (<200); Estimated Glomerular Filt Rate > 60; HDL Cholesterol 60 mg/dL (>40); Potassium 3.8 mmol/L (3.3-5.1); Sodium 141 mmol/L (135-145); Total Protein 7.3 g/dL (6.5-8.0); Triglycerides 96 mg/dL (<150)
[2025-01-22 05:09] LABS: VITAMIN D (1,25 OH) D3 107 pg/mL; Vit D (1,25-Dihydroxy) Total 107 pg/mL (18-72); Vitamin D (1,25 OH) D2 <8 pg/mL
[2025-01-23 12:13] LABS: Anti Nuclear Antibody Screen POSITIVE (NEGATIVE)
[2025-01-23 12:18] LABS: Anti Nuclear Antibody Pattern Nuclear, Speckled; Anti Nuclear Antibody Titer 1:40 titer
== END 2025-01-17 13:26 | disposition home or self-care (01) ==
LOC: HO.LAB 13:25
PROVIDERS: PCP Internal Medicine; Visit Provider Internal Medicine
DX: Z00.00 Encounter for general adult medical examination without abnormal findings (principal); R42 Dizziness and giddiness; L98.9 Disorder of the skin and subcutaneous tissue, unspecified; I95.1 Orthostatic hypotension; R06.83 Snoring
CPT/HCPCS: 36415; 80053; 80061; 82652; 83036; 84443; 85025; 86038; 86039; 99212; 99395

== ENCOUNTER → 2025-01-23 15:18 | Outpatient (BNVA) | payer OTHER, SELFPAY | PROVIDERS: PCP Internal Medicine; Visit Provider Registered Nurse | DX: S60.011A Contusion of right thumb without damage to nail, initial encounter (principal); W50.3XXA Accidental bite by another person, initial encounter; Z02.79 Encounter for issue of other medical certificate | CPT/HCPCS: 73130; 99203 ==

== ENCOUNTER 2025-02-01 14:23 | Outpatient (AMB) | payer OTHER, SELFPAY ==
[2025-02-01 14:26] VITALS: BP 100/62; PULSE 78; RESP 18; TEMP 36.3; O2SAT 96; BMI 23.3
--- NOTE | 2025-02-01 14:26 | MHC.PC.OV ---
Vital Signs 02/01/25 14:26 Height 5 ft 5 in Weight 140 lb 4 oz BMI 23.3 BP 100/62 Blood Pressure Location Rt brachial Position Sitting Respiration 18 Pulse 78 Pulse Source Pulse Oximeter Temp 97.3 F Temp Source Temporal Artery Scan Pulse Oximetry (%) 96 Oxygen Delivery Method Room Air Intake Visit Reasons: follow up Technical Project Manager Required: No Accompanied by: Self / Same As Patient Allergies No Known Allergies Allergy (Verified 02/01/25 14:27) Medication List - Last Reconciled 02/01/25 by Bianka Keenan MD benzoyl peroxide 4% 1 appl topical DAILY fluoxetine 20 mg PO DAILY meclizine 12.5 mg PO TID PRN [id number]-[id number]-[id number] 3.5mg-400 unit- 5,000 unit/gram (Triple Antibiotic) 1 appl topical DAILY Tobacco use date assessed: 02/01/25 Dental Screening Dental Screen Date: 02/01/25 Did you have a dental visit in the last 12 months?: Yes Did you have a dental problem in the last 6 months where you did not have access to dental care?: No Was dental information given to patient?: Patient has dentist HPI HPI Comments History of Present Illness Details The patient is a 30-year-old female presenting with facial skin lesions and concerns about a positive DICK test. The facial skin lesions have been spreading and are described as itchy and painful, with periods of temporary healing followed by recurrence. The DICK test was initially concerning to the patient, but further evaluation by a lathe machinist deemed it insignificant. The patient has no joint pain or swelling, making lupus less likely. PFSH Family History Paternal Grandmother Cancer Social History (Updated 01/17/25 @ 14:05 by Bianka Keenan MD) Housing: House Patient Tobacco Use Status: Current everyday Tobacco user Tobacco use type: Cigarette Cigarettes Per Day: 6 e-Cigarette/Vaping Use: Currently Using Second Hand Smoke Exposure: No service: No Current occupational status: employed Cognitive needs: No Hearing needs: No Vision needs: No Questionnaire Thrive Questionnaire Date Thrive assessed: 01/17/25 I am a: Patient What is your living situation today?: I have a steady place to live Within the past 12 months, did the food you bought not last and you didn't have the money to get more?: Sometimes True Within the past 12 months, did you worry whether your food would run out before you got money to buy more?: Sometimes True Do you have trouble paying for medicines?: No Do you have trouble getting transportation to medical appointments?: No Do you have trouble paying your heating and electricity bill?: No Do you have trouble taking care of your child, family member or friend?: No Do you have trouble with day-to-day activities such as bathing, preparing meals, shopping, managing finances, etc.?: No Are you currently unemployed and looking for a job?: Yes Are you interested in more education?: Yes Please select the resources that you would like help with: None Currently or been in a relationship where the following occur: No concerns reported THRIVE Score: 2 MARU-7 AMB Questionnaire MARU-7 Date MARU - 7 assessed: 06/04/22 Source: Developed by Drs. Fabiano Evans, Paige Bernal, Avtar Read and colleagues, with an educational girish from [employer]. Review of Systems Const Details: NI Physical exam (Primary Care) Vital Signs: Last Vital Signs Temp 97.3 F 02/01/25 14:26 Pulse 78 02/01/25 14:26 Resp 18 02/01/25 14:26 BP 100/62 02/01/25 14:26 Pulse Ox 96 02/01/25 14:26 Oxygen Delivery Method Room Air 02/01/25 14:26 BMI result Body Mass Index 23.3 Tobacco/Smoking Status: Tobacco use Status Tobacco use date assessed 02/01/25 02/01/25 14:29 Patient Tobacco Use Status Current everyday Tobacco 02/01/25 14:29 Tobacco use type Cigarette 02/01/25 14:29 e-Cigarette/Vaping Use Currently Using 02/01/25 14:29 Thrive Assessment: Date of Thrive Assessment Date Thrive assessed 01/17/25 02/01/25 14:29 Currently or been in a relationship where the following occur: No concerns reported Const Other: Pertinent findings are in BOLD GENERAL APPEARANCE NAD, activity normal for age, well developed/ well nourished, no cyanosis, pallor, or diaphoresis. EYES lids/conjunctiva normal. EARS/NOSE/THROAT Mucous membranes moist, nares normal, lips/teeth normal uvula midline without oral pharyngeal erythema, exudate or swelling TMs normal bilaterally. No lymphangitis/lymphedema. HEAD/NECK normocephalic atraumatic, no facial trauma, neck is supple. RESPIRATORY respiratory effort normal, speaks in full sentences, no tripod position, no accessory muscle use. Lungs clear to auscultation without rhonchi, wheezes, rales CARDIAC Regular rate and rhythm, no edema. ABDOMINAL Soft, ND/NT. No evidence of fluid wave. No pulsatile masses on exam, rebound tenderness, Valladares sign or pain over Mcburney's point. MUSCLES/EXTREMITIES No abnormal range of motion, no swelling. SKIN Warm, pink and dry. No rashes, dermatoses, petechiae, 3 lesions on patient face. NEUROLOGICAL Speech is clear and appropriate. Normal level of consciousness. Gait and coordination are normal. 5/5 strength in all extremities. PSYCH Normal mood and affect. Judgement/competence is appropriate Coding Level of Care Code Est Pt Level 3 (72493) Diagnoses Face lesion L98.9 Positive DICK (antinuclear antibody) R76.89 Time Spent (min) 20 Assessment & Plan Assessment & Plan (1) Face lesion: Code(s): L98.9 - Disorder of the skin and subcutaneous tissue, unspecified Category: Medical Plan: - Prescribed benzoyl peroxide and triple antibiotic ointment for topical application. - Advised dietary modifications to assess potential food triggers. - Referral to dermatology for further evaluation and management. (2) Positive DICK (antinuclear antibody): Code(s): R76.89 - Other specified abnormal immunological findings in serum Category: Medical Plan: - Rheumatology evaluation deemed DICK test not significantly high, no urgent follow-up required. - Patient agreable. Plan During the consultation, I discussed the management of the patient's facial skin lesions, including the prescription of benzoyl peroxide and triple antibiotic ointment. I advised the patient to consider dietary changes to identify potential food triggers and referred her to dermatology for further evaluation. We reviewed the DICK test results, which were not significantly high, and determined that no urgent follow-up with rheumatology was necessary. Orders: Referrals Dermatology Referral L98.9 - Disorder of the skin and subcutaneous tissue, unspecified Medications: New benzoyl peroxide 4% 1 appl topical DAILY 150 mL 0RF [id number]-pjfwnrktiGn-[id number] 3.5mg-400 unit- 5,000 unit/gram (Triple Antibiotic) 1 appl topical DAILY 15 grams 0RF
--- OUTSIDE RECORDS SUMMARY | 2025-02-01 18:11 | XMS_ITS | Clinical Summary ---
Author Organization [facility] Address [address] [place] [phone] Phone Care Team Providers Care Power Builder Developer Name Role Phone Unavailable Primary Care Provider [...] complete this topic Procedures * Due to [place] state law, this organization might not be sharing sensitive test results. Procedure Name Priority Date/Time Associated Diagnosis Comments CHLAMYDIA AND GONORRHEA, AMPLIFIED Routine 01/15/2016 12:00 AM EDT from Last 3 Months or Most Recently Relevant to Health Maintenance Results * Due to [place] state law, this organization might not be sharing sensitive test results. * Chlamydia and Gonorrhoea, Amplified (01/15/2016 12:00 AM EDT) URINE GC AMP PROBE NEGATIVE C ONVERT[facility] LABS Comment: No Neisseria Gonorrhoeae RNA detected in this patient's sample (REFERENCE RANGE/NORMAL VALUE: NOT DETECTED) NOTE: This test uses manager area-mediated amplification method to detect rRNA from C.Trachomatis [...]
--- OUTSIDE RECORDS SUMMARY | 2025-02-01 18:11 | XMS_ITS | Encounter Summary ---
Author Organization [facility] Address [address] [place] [phone] Phone Care Team Providers Care Loan Teller Name Role Phone Baljit Thornton MD Primary Care Provider [phone] Encounter Details Date Type Department Care Team (Late st Contact Info) Description 05/08/2009 Documentation [facility] [place] Family Medicine [address] [place] [address] Family Medicine, Physician [address], [place] [address] Social History Tobacco Use Types Packs/Day Years [...] on filedocumented in this encounter Care Teams Loan Teller Relationship Specialty Start Date End Date Baljit Thornton MD [address] [place] [place] [address] PCP - General 08/25/17 04/02/24 documented as of this encounter
--- OUTSIDE RECORDS SUMMARY | 2025-02-01 18:11 | XMS_ITS | Encounter Summary ---
Author Organization [facility] Address [address] [place] [phone] Phone Care Team Providers Care Senior Validation Engineer Name Role Phone Baljit Thornton MD Primary Care Provider [phone] Encounter Details Date Type Department Care Team (Late st Contact Info) Description 09/05/2017 Conversion Encounter [facility] [address] [place] [address] Baljit Thornton MD [address] [place] [phone] Social History Tobacco Use Types Packs/Day Years [...] on filedocumented in this encounter Care Teams Senior Validation Engineer Relationship Specialty Start Date End Date Baljit Thornton MD [address] [place] [phone] PCP - General 08/25/17 04/02/24 documented as of this encounter
--- OUTSIDE RECORDS SUMMARY | 2025-02-01 18:11 | XMS_ITS | Encounter Summary ---
Author Organization [facility] Address [address] [place] [phone] Phone Care Team Providers Care Rat Trapper Name Role Phone Baljit Thornton MD Primary Care Provider [phone] Encounter Details Date Type Department Care Team (Late st Contact Info) Description 06/13/2009 Documentation [facility] [place] [address] [place] [address] Family Medicine, Physician [address] [place] [place], [place] [id number] Social History Tobacco Use Types Packs/Day Years [...] on filedocumented in this encounter Care Teams Rat Trapper Relationship Specialty Start Date End Date Baljit Thornton MD [address] [place] [address] PCP - General 08/25/17 04/02/24 documented as of this encounter
== END 2025-02-01 15:02 | disposition home or self-care (01) ==
LOC: HO.HMCH 14:24
PROVIDERS: PCP Internal Medicine; Visit Provider Internal Medicine
DX: L98.9 Disorder of the skin and subcutaneous tissue, unspecified (principal); R76.89 Other specified abnormal immunological findings in serum

== ENCOUNTER → 2025-02-01 14:23 | Outpatient (BNVA) | payer OTHER, SELFPAY | PROVIDERS: PCP Internal Medicine; Visit Provider Internal Medicine | DX: L98.9 Disorder of the skin and subcutaneous tissue, unspecified (principal); R76.89 Other specified abnormal immunological findings in serum | CPT/HCPCS: 99212 ==